=== PATIENT | male | born 1965 | race Caucasian/White ===

== ENCOUNTER 2019-07-27 05:46 | Day surgery (SDC) | payer OTHER ==
--- NOTE | 2019-07-24 03:40 | HP ---
HISTORY AND PHYSICAL: DATE OF ADMISSION/SURGERY: 07/27/19 DATE OF OFFICE VISIT: 07/21/19 SURGEON: Maria Fernanda Estrella MD * (DICTATED BY AGAPITO SANTIAGO) PROCEDURE: Left knee arthroscopy with partial meniscectomy, possible chondroplasty, possible synovectomy, and possible plica excision. CHIEF COMPLAINT: Left knee pain. HISTORY OF PRESENT ILLNESS: Mr. Willams is a 53-year-old gentleman with complaints of medial knee pain and MRI confirms a medial meniscus tear and he is elected to proceed with surgery. PAST MEDICAL HISTORY: Denies. PAST SURGICAL HISTORY: Left hand surgery. MEDICATIONS: None. ALLERGIES: No allergies. FAMILY HISTORY: Diabetes. SOCIAL HISTORY: He is a 53-year-old gentleman, lives with his . He does not smoke, use drugs, or alcohol. REVIEW OF SYSTEMS: A complete 14-point review of systems was reviewed with the patient and is all negative and noncontributory. He denies history of DVT, PE, hepatitis, HIV or anesthesia problems. PHYSICAL EXAMINATION GENERAL: He is well developed, well nourished, in no acute distress. VITAL SIGNS: He stands 72 inches tall, weighs 224 pounds. His blood pressure is 136/78 and his heart rate is 72. HEENT: Normocephalic, atraumatic. NECK: Supple. No palpable lymph nodes. PULMONARY: Lungs are clear to auscultation bilaterally. CARDIO: Regular rate and rhythm. Strong S1, S2. ABDOMEN: Soft, nontender, nondistended. NEUROLOGICAL: He is alert and oriented x3. MUSCULOSKELETAL: Left lower extremity, the skin is intact. There are no open wounds or abrasions. There is mild effusion of the left knee. Some tenderness along the medial joint line. Positive Olayinka's. Positive Apley's. Negative Sobeida's. His calf is soft and nontender. He is able to dorsiflex and plantarflex. He has a 2+ dorsalis pedis pulse and intact sensation. ASSESSMENT AND PLAN: Mr. Willams is a 53-year-old gentleman with complaints of left knee pain and MRI confirms a medial meniscus tear. He has elected to proceed with a left total knee arthroscopy, which is scheduled for 07/27/[address] Estrella discussed the risks and benefits of the surgery at today's visit and all of his questions were answered. He will follow up with Dr. Estrella 2 weeks after the surgery. AGAPITO SANTIAGO [id number]/[facility] #: [id number] [facility]
[~2019-07-27 05:46] MED LIST: Buffered Lidocaine 1% SYRIN* 1 ML/SYRINGE INTRADERM ONE
[2019-07-27] MEDS ORDERED: Lactated Ringers 1000 ML Bag* 1,000 ML IV SCH (06:00)
[2019-07-27] MEDS ORDERED: Buffered Lidocaine 1% SYRIN* 1 ML/SYRINGE INTRADERM ONE (06:09)
[2019-07-27] MEDS ORDERED: ceFAZolin 2 GM in NS PREMIX(*) 2 GM/100 ML BAG IVPB ONE (06:09)
[2019-07-27] MEDS ORDERED: EPINEPHRINE 1 MG/ML 1 ML VIAL ONE (06:53)
[2019-07-27] MEDS ORDERED: methylPREDNISolone ACETATE 80* 80 MG/ML 1 ML VIAL ONE (06:53)
[2019-07-27] MEDS ORDERED: ROPIVACAINE 5 MG/ML 30 ML BTL (0.5%) ONE (06:54)
[2019-07-27] MEDS ORDERED: Propofol* 10 MG/ML 20 ML BTL ONE (07:16)
[2019-07-27] MEDS ORDERED: Lidocaine 2% PF * 5 ML VIAL ONE (07:16)
[2019-07-27] MEDS ORDERED: Midazolam* 1 MG/ML 2 ML VIAL (2 MG) ONE (07:16)
[2019-07-27] MEDS ORDERED: fentaNYL* 50 MCG/ML 2 ML VIAL (100 MCG VIAL) ONE ×2 (07:17→08:41)
[2019-07-27] MEDS ORDERED: Ketorolac INJ* 30 MG/ML 1 ML VIAL ONE (07:32)
[2019-07-27] MEDS ORDERED: Ondansetron INJ* 2 MG/ML VIAL ONE (07:32)
[2019-07-27] MEDS ORDERED: Metoclopramide IV* 5 MG/ML 2 ML VIAL ONE (07:32)
[2019-07-27] MEDS ORDERED: Dexamethasone IV* 4 MG/ML 1 ML (4 MG) ONE (07:32)
[2019-07-27] MEDS ORDERED: EPHEDrine (Pressors)* 50 MG/ML VIAL ONE (07:35)
[2019-07-27] MEDS ORDERED: DiMENhydriNATE IV* 50 MG/ML VIAL IV PUSH PRN (08:04)
[2019-07-27] MEDS ORDERED: Naloxone* 0.4 MG/ML 1 ML VIAL IV PRN (08:04)
[2019-07-27] MEDS ORDERED: oxyCODONE TAB* 5 MG TAB PO PRN (08:04)
[2019-07-27] MEDS ORDERED: oxyCODONE TAB* 5 MG TAB ONE (08:41)
[2019-07-27] MEDS: fentaNYL* 50 MCG/ML 2 ML VIAL (100 MCG VIAL) IV PRN ×4 (08:43→09:03)
[2019-07-27 10:13] VITALS: BP 128/81
--- NOTE | 2019-07-28 02:48 | OP ---
DATE OF OPERATION: 07/27/19 - [facility] DATE OF : 67 SURGEON: Maria Fernanda Estrella MD MIDDLEWARE CONSULTANT: AGAPITO Pierre. Ms. Hi did help throughout the procedure with preparation of the leg, wound retraction, and manipulation of the knee and wound closure. ANESTHESIOLOGIST: Dr. Ortiz. ANESTHESIA: General. PRE-OP DIAGNOSES: Left knee medial meniscal tear, mild osteoarthritic changes. POST-OP DIAGNOSES: Left knee medial meniscal tear, [id number] degenerative osteoarthritis. OPERATIVE PROCEDURE: Left knee arthroscopy with partial medial meniscectomy and medial chondroplasty. INDICATIONS: Mr. Willams is a 53-year-old gentleman, who has had two months of acute-onset left knee pain and swelling. He has mechanical symptoms and locking in the knee. MRI confirmed a displaced medial meniscal tear. Due to failure of conservative treatment and continued pain, the patient elected to undergo left knee arthroscopy with partial meniscectomy. Informed consent was obtained from the patient. He understood the risks of surgery included, but were not limited to, bleeding, infection, damage to nearby structures, continued pain, need for further surgery, retear of the meniscus, progression of arthritis, stroke, heart attack, blood clot, and . He wished to proceed. INTRAOPERATIVE FINDINGS: Intraoperatively, the patient noted to have a displaced parrot-beak type tear in the posterior one-third of medial meniscus. The fragment was displaced into the medial gutter and into the joint space. The patient also was noted to have grade 3 and 4 Outerbridge cartilage changes involved in the medial femoral condyle with exposed subchondral bone and cartilage flap. ESTIMATED BLOOD LOSS: Less than 25 cc. SPECIMENS: None. COMPLICATIONS: None. DESCRIPTION OF PROCEDURE: Mr. Willams was identified in the preanesthesia unit. His left lower extremity was marked as the correct operative side. Informed consent was signed and placed in the chart. The patient was taken to the operating room and placed under anesthesia without difficulty. The left lower extremity was prepped and draped in the usual sterile fashion. Preop time -out was made to correctly identify the patient's side and site. Appropriate perioperative antibiotics were given within 1 hour of incision. A 0.5-cm anterolateral portal incision was made with a 10 blade and carried down to the capsule. Trocar was introduced. As soon as the water and light sources were turned on, there was immediate visualization of the suprapatellar pouch. A tour of the knee joint was performed. Suprapatellar pouch had no obvious abnormalities. Patellofemoral compartment had some grade 2 and 3 Outerbridge cartilage changes. No exposed subchondral bone. The medial gutter showed a displaced meniscal fragment. Medial compartment showed a displaced parrot-beak type tear of the medial meniscus. Medial femoral condyle had exposed subchondral bone with grade 3/4 Outerbridge cartilage changes. The ACL and PCL appeared to be intact. The knee was placed in a hguufm-eg-ibah position. No significant degenerative changes in the lateral compartment. No obvious lateral meniscal tear. Lateral gutter had no loose body. Under direct visualization, a medial portal incision was made. A probe was introduced. A second tour of the knee joint was performed. No additional findings were noted. The medial meniscal tear was reduced into the joint space. Shaver and straight biter were used to perform partial medial meniscectomy. Shaver and radiofrequency ablation wand were used to further smooth the edges of the medial meniscus. Further probing of the medial meniscus showed no additional tears. The medial femoral condyle had exposed subchondral bone as well as the cartilage flap. Radiofrequency ablation wand was used to perform chondroplasty and smooth the edge of the cartilage flap. The knee was copiously irrigated with sterile saline. All instruments were carefully removed. Incisions were closed using 3-0 nylon suture. Sterile Xeroform, 4x4s, and Webril were used to cover the incision. Kojo wrap and cold pack were placed over this. The patient's anesthesia was reversed without difficulty. He was taken to the PACU in stable condition. Intended weightbearing will be weightbearing as tolerated. Intended DVT prophylaxis will be aspirin. [id number]/[facility] #: [id number] [facility]Anna
== END 2019-07-27 10:32 | disposition home or self-care (01) ==
LOC: OR 05:46
PROVIDERS: ATTEND Orthopaedic Surgery Adult Reconstructive Orthopaedic Surgery
DX: S83.242A Other tear of medial meniscus, current injury, left knee, initial encounter (principal); M17.12 Unilateral primary osteoarthritis, left knee; X58.XXXA Exposure to other specified factors, initial encounter; Y92.9 Unspecified place or not applicable
CPT/HCPCS: A9270-GY; J0690; J1040; J1100; J1885; J2250; J2405; J2704; J2765; J2795; J3010